=== PATIENT | female | born 1995 | race Caucasian/White ===

== ENCOUNTER → 2019-01-29 | Outpatient (CLI) | payer OTHER ==
[~2019-01-29] MED LIST: ALBU90OI INH; ALBU90OI6 INH; ALBU90OI61 INH; AMOCLA500 PO; ANXIETY MED; Albuterol Sulf8.5 GM INH; BIRTH CONTROL PATCH; BISA5EC PO; BUPR75 PO; Bactrim Ds Tab1 EACH PO; CEFU250 PO; CHOL10002; CIPR500 PO; CITA20 PO; CLIN150 PO; CYCL10 PO; Cipro500 MG PO; Ciprodex Otic7.5 ML RIGHTEAR; Cleocin HCl300 MG PO; DEXGUASY PO; EC-Naprosyn500 MG PO; FLUC150A PO; FLUC200 PO; FLUO10 PO; FLUT.05NI; FLUT44OIA IH; Flonase 0.05% N16 GM; HYDACE5 PO; HYDHCL25 PO; IBUP800 PO; MEDR150I IM; MULVITMIND PO; MULVITMINE PO; Macrobid 100 M100 MG PO; NAPR375 PO; NAPR500 PO; NITR100CA PO; Naprosyn500 MG PO; Norco 10-325 T1 EACH PO; Norco 5-325 Ta1 EACH PO; ONDA4 PO; ORTHO EVRA; OXYACE5T PO; PHENA200 PO; POLY17UD PO; PRODEXEL PO; PROM25 PO; PSYL5.85P PO; Percocet 5-3251 EACH PO; RISP2 PO; RXCYCL10 PO; RXPROM25 PO; RXTRAM50 PO; Roxicodone5 MG PO; SERT25 PO; SULTRIDS PO; Seasonique 0.11 EACH PO; TRAM50 PO; TRIA80TC TOP; Ultram50 MG PO; Vistaril25 MG PO; Zithromax250 MG PO; Zofran Odt4 MG SL; Zofran4 MG PO
== END | disposition home or self-care (01) ==
LOC: LAB 13:26 → LAB SHORT 13:26
DX: Z34.80 Encounter for supervision of other normal pregnancy, unspecified trimester (principal)
CPT/HCPCS: 87081; 87653

== ENCOUNTER 2019-02-19 11:41 | Inpatient (IN) | payer OTHER ==
[~2019-02-19] VITALS: Ht 157.5 cm; Wt 0.3 kg
[2019-02-19] MEDS ORDERED: SERT25 PO (12:08)
[2019-02-19] MEDS ORDERED: PROM25 PO (12:08)
[2019-02-19] MEDS ORDERED: ONDA4ODT MM (12:08)
[2019-02-19 12:09] LABS: BASOPHILS ABSOLUTE AUTO 0.05 K/mm3 (0.00-0.23); BASOPHILS PERCENT AUTO 0 % (0-2); EOSINOPHILS PERCENT AUTO 1 % (0-6); Hematocrit 36.3 % (33.0-51.0); Hemoglobin 11.8 g/dL (11.5-16.0); IMMATURE GRAN ABSOLUTE AUTO 0.19 K/mm3 (0.00-0.10); IMMATURE GRAN PERCENT AUTO 1 % (0-1); LYMPHOCYTES ABSOLUTE AUTO 2.89 K/mm3 (0.84-5.20); LYMPHOCYTES PERCENT AUTO 19 % (21-46); MONOCYTES ABSOLUTE AUTO 0.87 K/mm3 (0.16-1.47); MONOCYTES PERCENT AUTO 6 % (4-13); Mean Corpuscular HGB 29.4 pg (26.0-34.0); Mean Corpuscular HGB Conc 32.5 g/dL (31.5-36.5); Mean Corpuscular Volume 91 fL (80-100); Mean Platelet Volume 11.1 fL (9.1-12.4); NEUTROPHILS ABSOLUTE AUTO 11.21 K/mm3 (1.96-9.15); NEUTROPHILS PERCENT AUTO 73 % (41-73); Platelet Count 306 K/mm3 (150-400); RDW Coefficient Variation 13.1 % (11.7-14.2); RDW Standard Deviation 42.5 fL (35.1-46.3); Red Blood Cell Count 4.01 M/mm3 (3.80-5.20); White Blood Cell Count 15.41 K/mm3 (4.00-11.30)
[2019-02-19] MEDS ORDERED: Norco 5-325 Ta1 EACH PO (12:09)
--- NOTE | 2019-02-20 07:11 | NUR ---
ASSUMED CARE AT 0700, PT HAVING EMESIS. FF, -1, SCANT BLEEDING, PERICARE DONE. FOB HOLDING NB SKIN TO SKIN.
--- NOTE | 2019-02-20 10:27 | NUR ---
PT UP TO SHOWER, LEFT LEG WAS STILL VERY NUMB FOR AWHILE. F/C REMOVED. INSTRUCTED PT TO ATTEMPT TO VOID BY 1330. PT QUINCY AMBULATION WELL. LINEN CHANGED.
--- NOTE | 2019-02-20 10:43 | NUR ---
REPORT TO ROSEANNE SALAZAR. NO ACUTE CHANGES, PT RESTING BACK IN BED.
--- NOTE | 2019-02-20 16:11 | NUR ---
ASSIST BABY SLEEPING. BREASFEEDING ED VERBAL. DISCUSSED AND NEW BEGINNINGS BOOK. DEMONSTRATED HAND EXPRESSION OF BREAST MILK.
[2019-02-21 05:24] LABS: BASOPHILS ABSOLUTE AUTO 0.03 K/mm3 (0.00-0.23); BASOPHILS PERCENT AUTO 0 % (0-2); EOSINOPHILS ABSOLUTE AUTO 0.23 K/mm3 (0.00-0.68); EOSINOPHILS PERCENT AUTO 2 % (0-6); Hematocrit 26.7 % (33.0-51.0); Hemoglobin 8.7 g/dL (11.5-16.0); IMMATURE GRAN ABSOLUTE AUTO 0.13 K/mm3 (0.00-0.10); IMMATURE GRAN PERCENT AUTO 1 % (0-1); LYMPHOCYTES ABSOLUTE AUTO 2.46 K/mm3 (0.84-5.20); LYMPHOCYTES PERCENT AUTO 19 % (21-46); MONOCYTES PERCENT AUTO 8 % (4-13); Mean Corpuscular HGB 29.9 pg (26.0-34.0); Mean Corpuscular HGB Conc 32.6 g/dL (31.5-36.5); Mean Corpuscular Volume 92 fL (80-100); Mean Platelet Volume 10.8 fL (9.1-12.4); NEUTROPHILS ABSOLUTE AUTO 9.17 K/mm3 (1.96-9.15); NEUTROPHILS PERCENT AUTO 70 % (41-73); Platelet Count 236 K/mm3 (150-400); RDW Coefficient Variation 13.1 % (11.7-14.2); Red Blood Cell Count 2.91 M/mm3 (3.80-5.20); White Blood Cell Count 13.02 K/mm3 (4.00-11.30)
[2019-02-21] MEDS ORDERED: IBU800 MG PO (07:45)
[2019-02-21] MEDS ORDERED: IRON150C PO (07:46)
--- NOTE | 2019-02-21 09:13 | NUR ---
PAIN PATIENT FEELING LIKE PAIN IS ON HER RIGHT SIDE OF BACK FROM PUSHING. TYLENOL GIVEN
--- NOTE | 2019-02-21 16:53 | NUR ---
DISCHARGE MOTHER TO BORDER STATUS. VERBALIZES UNDERSTANDING OF DC INSTRUCTIONS AND FOLLOW UP APPOINTMENTS. PP DEPRESSION DISCUSSED AND ANXIETY AND PATIENTS STATES SHE HAS ALL HER MEDICATIONS AT HOME FOR THIS. WILL FOLLOW UP WITH MD IF IT BECOMES UNBEARABLE. VSS. NO COMPLAINTS. LOCHIA SCANT.
== END 2019-02-21 17:00 | disposition home or self-care (01) | DRG 806 ==
LOC: OBS 11:41 → BC 11:41 → OBS 11:53 → BC 11:53 → OBS 12:11 → BC 12:12 → EDSTATUS 12:40 → BC 19:19 → SURS 02-20 07:08 → BC 02-21 17:00
PROVIDERS: ADMIT Obstetrics & Gynecology
PROC: 10E0XZZ Delivery of Products of Conception, External Approach (ICD-10-PCS; principal; 2019-02-19)
PROC: 3E0R3BZ Introduction of Anesthetic Agent into Spinal Canal, Percutaneous Approach (ICD-10-PCS; 2019-02-19)
PROC: 00HU33Z Insertion of Infusion Device into Spinal Canal, Percutaneous Approach (ICD-10-PCS; 2019-02-19)
DX: O99.344 Other mental disorders complicating childbirth (principal); O99.355 Diseases of the nervous system complicating the puerperium; Z37.0 Single live birth; F41.8 Other specified anxiety disorders; Z87.891 Personal history of nicotine dependence; G43.909 Migraine, unspecified, not intractable, without status migrainosus; Z3A.38 38 weeks gestation of pregnancy
CPT/HCPCS: 36415; 51702; 85025; J1885; J2001; J2210; J2405; J2590; J3010; J7120

== ENCOUNTER 2019-04-25 12:29 | Day surgery (SDC) | payer OTHER ==
[~2019-04-25] VITALS: Ht 157.5 cm; Wt 88.5 kg
[~2019-04-25 12:29] MED LIST changes: +BUSP5 PO; +Buspirone HCl10 MG PO; +IBU800 MG PO; +IRON150C PO; +ONDA4ODT MM; +ONDA8 PO; +PROMETH-CODEIN 65 ML PO; +SERT50 PO
--- NOTE | 2019-04-25 13:25 | NUR ---
04/25/19 1325 Leonor Alonzo V PT RESTING IN BED, SIDE RAILS IN PLACE, CALL LIGHT WITHIN REACH, VSS. PT TEACHING COMPLETED. PT DENIES PAIN AND DISCOMFORT AT THIS TIME.
== END 2019-04-25 17:15 | disposition home or self-care (01) ==
LOC: ORSCSDS 12:29
PROVIDERS: Obstetrics & Gynecology
PROC: 0UT64ZZ Resection of Left Fallopian Tube, Percutaneous Endoscopic Approach (ICD-10-PCS; principal; 2019-04-25 14:00)
DX: Z30.2 Encounter for sterilization (principal); Z87.891 Personal history of nicotine dependence; E66.01 Morbid (severe) obesity due to excess calories; Z68.35 Body mass index [BMI] 35.0-35.9, adult; Z79.899 Other long term (current) drug therapy
CPT/HCPCS: 88302; J1100; J1885; J2250; J2405; J2704; J2765; J3010; J7120

== ENCOUNTER 2019-05-29 11:47 | Emergency (ER) | payer OTHER ==
[~2019-05-29] VITALS: Ht 157.5 cm; Wt 86.2 kg
== END 2019-05-29 16:47 | disposition left against medical advice (07) ==
LOC: ER 11:47
DX: Z53.21 Procedure and treatment not carried out due to patient leaving prior to being seen by health care provider (principal)

== ENCOUNTER 2019-11-13 11:16 | Emergency (ER) | payer OTHER ==
[~2019-11-13] VITALS: Ht 157.5 cm; Wt 84.8 kg
[2019-11-13] MEDS ORDERED: IBUP800 PO (11:36)
[2019-11-13 11:48] LABS: BASOPHILS ABSOLUTE AUTO 0.06 K/mm3 (0.00-0.23); BASOPHILS PERCENT AUTO 1 % (0-2); EOSINOPHILS ABSOLUTE AUTO 0.36 K/mm3 (0.00-0.68); EOSINOPHILS PERCENT AUTO 4 % (0-6); Hematocrit 46.5 % (33.0-51.0); Hemoglobin 15.3 g/dL (11.5-16.0); IMMATURE GRAN ABSOLUTE AUTO 0.03 K/mm3 (0.00-0.10); IMMATURE GRAN PERCENT AUTO 0 % (0-1); LYMPHOCYTES ABSOLUTE AUTO 3.11 K/mm3 (0.84-5.20); LYMPHOCYTES PERCENT AUTO 31 % (21-46); MONOCYTES ABSOLUTE AUTO 0.61 K/mm3 (0.16-1.47); MONOCYTES PERCENT AUTO 6 % (4-13); Mean Corpuscular HGB 30.3 pg (26.0-34.0); Mean Corpuscular HGB Conc 32.9 g/dL (31.5-36.5); Mean Corpuscular Volume 92 fL (80-100); Mean Platelet Volume 10.2 fL (9.1-12.4); NEUTROPHILS ABSOLUTE AUTO 5.79 K/mm3 (1.96-9.15); NEUTROPHILS PERCENT AUTO 58 % (41-73); Platelet Count 331 K/mm3 (150-400); RDW Coefficient Variation 12.2 % (11.7-14.2); RDW Standard Deviation 41.2 fL (35.1-46.3); Red Blood Cell Count 5.05 M/mm3 (3.80-5.20); White Blood Cell Count 9.96 K/mm3 (4.00-11.30)
[2019-11-13 12:02] LABS: Alanine Aminotransfer (ALT/SGP 26 U/L (12-78); Albumin, Blood 4.2 g/dL (3.4-5.0); Alk Phos 57 U/L (50-136); Anion Gap 4 mmol/L (6-16); Aspartate Aminotrans (AST/SGOT 16 U/L (12-37); Bilirubin, Total 2.1 mg/dL (0.1-1.0); Blood Urea Nitrogen 8 mg/dL (8-24); Bun/Creatinine Ratio 9.5 (12.0-20.0); CO2, Blood 28 mmol/L (21-32); Calcium, Blood 9.6 mg/dL (8.5-10.1); Chloride, Blood 105 mmol/L (98-108); Creatinine, Blood 0.85 mg/dL (0.40-1.00); Globulin, Blood 4.4 g/dL (2.2-4.0); Glomerular Filtration Rate >60 (60-); Glucose, Blood 92 mg/dL (70-99); Potassium, Blood 3.4 mmol/L (3.5-5.5); Sodium, Blood 137 mmol/L (136-145); Total Protein, Blood 8.6 g/dL (6.4-8.2)
[2019-11-13] MEDS ORDERED: CYCL10 PO (13:32)
== END 2019-11-13 13:54 | disposition home or self-care (01) ==
LOC: ER 11:16
PROVIDERS: Emergency Medicine
DX: R25.2 Cramp and spasm (principal); F32.9 Major depressive disorder, single episode, unspecified; Z87.891 Personal history of nicotine dependence; Z79.899 Other long term (current) drug therapy
CPT/HCPCS: 36415; 80053; 82550; 85025; 96361; 96374; 96375; 99283-25; J1885; J2060; J7120

== ENCOUNTER 2022-06-02 09:39 | Emergency (ER) | payer OTHER ==
[~2022-06-02] VITALS: Ht 157.5 cm; Wt 104.3 kg
[2022-06-02 10:05] LABS: Source, Urine Clean Catch
[2022-06-02 10:19] LABS: Bilirubin, Urine Neg (Neg); Blood, Urine Neg (Neg); Glucose Qualitative, Urine Neg (Neg); Ketones, Urine Neg (Neg); Leukocyte Esterase, Urine Neg (Neg); Nitrite, Urine Neg (Neg); Protein, Urine Neg (Neg); Urobilinogen, Urine NORM (Normal); pH, Urine 6.5 (5.0-8.0)
[2022-06-02 10:34] LABS: Color, Urine Yellow (P-Yellow)
[2022-06-02 10:35] LABS: Appearance, Urine Clear (Clear)
[2022-06-02] MEDS ORDERED: MEDR10 PO (11:49)
== END 2022-06-02 12:00 | disposition home or self-care (01) ==
LOC: ER 09:39
PROVIDERS: Physician Assistant
DX: N93.8 Other specified abnormal uterine and vaginal bleeding (principal); J45.909 Unspecified asthma, uncomplicated; R73.03 Prediabetes; Z88.0 Allergy status to penicillin; Z91.02 Food additives allergy status; Z88.8 Allergy status to other drugs, medicaments and biological substances; Z91.018 Allergy to other foods
CPT/HCPCS: 76830; 76856; 81003; 81025; 99284-25

== ENCOUNTER 2023-08-21 08:17 | Emergency (ER) | payer OTHER ==
[~2023-08-21] VITALS: Ht 157.5 cm; Wt 81.2 kg
[~2023-08-21 08:17] MED LIST changes: +MEDR10 PO
[2023-08-21 09:14] VITALS: BP 147/98
[2023-08-21] MEDS ORDERED: IBU600 M1 PO (10:35)
[2023-08-21] MEDS ORDERED: CYCL10 PO (10:35)
[2023-08-21] MEDS ORDERED: Norco 5-325 Ta1 EACH PO (10:35)
== END 2023-08-21 10:36 | disposition home or self-care (01) ==
LOC: ER 08:17
DX: M54.9 Dorsalgia, unspecified (principal); W17.89XA Other fall from one level to another, initial encounter; J45.909 Unspecified asthma, uncomplicated; Z79.899 Other long term (current) drug therapy; Z88.0 Allergy status to penicillin; Z88.8 Allergy status to other drugs, medicaments and biological substances; Z91.02 Food additives allergy status; Z91.018 Allergy to other foods
CPT/HCPCS: 72070; 99283-25; A9270

== ENCOUNTER → 2023-10-27 | Outpatient (CLI) | payer OTHER ==
[~2023-10-27] MED LIST changes: +IBU600 M1 PO
[2023-10-29 16:19] LABS: APTIMA MEDIA TYPE Urine; C. TRACHOMATIS BY TMA Negative (Negative); N. GONORRHOEAE BY TMA Negative (Negative); SPECIMEN SOURCE Urine; T. VAGINALIS BY TMA Negative (Negative)
== END ==
LOC: LAB SHORT 11:57 → LAB 11:57
PROVIDERS: Student in an Organized Health Care Education/Training Program
DX: R82.90 Unspecified abnormal findings in urine (principal); R82.998 Other abnormal findings in urine
CPT/HCPCS: 87086; 87491; 87591; 87661

== ENCOUNTER 2023-11-22 00:22 | Emergency (ER) | payer OTHER ==
[~2023-11-22] VITALS: Ht 162.6 cm; Wt 81.7 kg
[2023-11-22 01:30] LABS: Source, Urine Clean Catch
[2023-11-22 01:36] LABS: BASOPHILS ABSOLUTE AUTO 0.04 K/mm3 (0.00-0.23); BASOPHILS PERCENT AUTO 1 % (0-2); Bilirubin, Urine Neg (Neg); Blood, Urine Neg (Neg); EOSINOPHILS ABSOLUTE AUTO 0.36 K/mm3 (0.00-0.68); EOSINOPHILS PERCENT AUTO 6 % (0-6); Glucose Qualitative, Urine Neg (Neg); Hematocrit 44.8 % (33.0-51.0); Hemoglobin 15.2 g/dL (11.5-16.0); IMMATURE GRAN ABSOLUTE AUTO 0.02 K/mm3 (0.00-0.10); IMMATURE GRAN PERCENT AUTO 0 % (0-1); Ketones, Urine 3+ (Neg); LYMPHOCYTES ABSOLUTE AUTO 1.77 K/mm3 (0.84-5.20); LYMPHOCYTES PERCENT AUTO 29 % (21-46); Leukocyte Esterase, Urine 1+ (Neg); MONOCYTES ABSOLUTE AUTO 0.41 K/mm3 (0.16-1.47); MONOCYTES PERCENT AUTO 7 % (4-13); Mean Corpuscular HGB Conc 33.9 g/dL (31.5-36.5); Mean Corpuscular Volume 91 fL (80-100); Mean Platelet Volume 10.3 fL (9.1-12.4); NEUTROPHILS ABSOLUTE AUTO 3.48 K/mm3 (1.96-9.15); NEUTROPHILS PERCENT AUTO 57 % (41-73); Nitrite, Urine Neg (Neg); Platelet Count 283 K/mm3 (150-400); Protein, Urine 1+ (Neg); RDW Coefficient Variation 12.1 % (11.7-14.2); RDW Standard Deviation 40.4 fL (35.1-46.3); Urobilinogen, Urine 2+ (Normal); White Blood Cell Count 6.08 K/mm3 (4.00-11.30)
[2023-11-22 01:56] LABS: Albumin, Blood 3.9 g/dL (3.4-5.0); Albumin/Globulin Ratio 0.9 (0.8-1.8); Bilirubin, Total 1.7 mg/dL (0.1-1.0); Bun/Creatinine Ratio 17.5 (12.0-20.0); Calcium, Blood 8.8 mg/dL (8.5-10.1); Creatinine, Blood 0.69 mg/dL (0.40-1.00); Globulin, Blood 4.3 g/dL (2.2-4.0); Potassium, Blood 4.4 mmol/L (3.5-5.5); Total Protein, Blood 8.2 g/dL (6.4-8.2)
[2023-11-22 01:57] LABS: Appearance, Urine Turbid (Clear); Color, Urine Yellow (P-Yellow)
[2023-11-22 01:58] LABS: Bacteria Mod /hpf; Mucus Light (0-Heavy); Red Blood Cells, Urine 0-2 /hpf (0-2)
[2023-11-22 01:59] LABS: Squamous Epithelial Cells Mod /hpf (Few)
[2023-11-22] MEDS ORDERED: CEPH500 PO (03:40)
[2023-11-22 05:50] VITALS: BP 101/63
== END 2023-11-22 05:28 | disposition home or self-care (01) ==
LOC: ER 00:22
PROVIDERS: Emergency Medicine
DX: N39.0 Urinary tract infection, site not specified (principal); E86.0 Dehydration; Z88.0 Allergy status to penicillin; Z88.8 Allergy status to other drugs, medicaments and biological substances; Z91.018 Allergy to other foods; Z79.899 Other long term (current) drug therapy
CPT/HCPCS: 76830; 76856; 80053; 81001; 84703; 85025; 87086; 96365; 96375; 99284-25; J0696; J1885; J7030

== ENCOUNTER 2023-12-21 03:09 | Emergency (ER) | payer OTHER ==
[~2023-12-21] VITALS: Ht 157.5 cm; Wt 82.5 kg
[~2023-12-21 03:09] MED LIST changes: +CEPH500 PO
[2023-12-21 03:28] LABS: BASOPHILS ABSOLUTE AUTO 0.06 K/mm3 (0.00-0.23); BASOPHILS PERCENT AUTO 1 % (0-2); EOSINOPHILS ABSOLUTE AUTO 0.24 K/mm3 (0.00-0.68); EOSINOPHILS PERCENT AUTO 3 % (0-6); Hematocrit 42.7 % (33.0-51.0); Hemoglobin 14.5 g/dL (11.5-16.0); IMMATURE GRAN ABSOLUTE AUTO 0.02 K/mm3 (0.00-0.10); IMMATURE GRAN PERCENT AUTO 0 % (0-1); LYMPHOCYTES ABSOLUTE AUTO 2.71 K/mm3 (0.84-5.20); LYMPHOCYTES PERCENT AUTO 31 % (21-46); MONOCYTES ABSOLUTE AUTO 0.64 K/mm3 (0.16-1.47); MONOCYTES PERCENT AUTO 7 % (4-13); Mean Corpuscular HGB 30.5 pg (26.0-34.0); Mean Corpuscular Volume 90 fL (80-100); Mean Platelet Volume 9.8 fL (9.1-12.4); NEUTROPHILS ABSOLUTE AUTO 4.96 K/mm3 (1.96-9.15); NEUTROPHILS PERCENT AUTO 58 % (41-73); Platelet Count 301 K/mm3 (150-400); RDW Coefficient Variation 11.9 % (11.7-14.2); RDW Standard Deviation 39.5 fL (35.1-46.3); Red Blood Cell Count 4.75 M/mm3 (3.80-5.20); White Blood Cell Count 8.63 K/mm3 (4.00-11.30)
[2023-12-21 03:45] LABS: Albumin, Blood 4.2 g/dL (3.4-5.0); Bilirubin, Total 1.3 mg/dL (0.1-1.0); Bun/Creatinine Ratio 14.4 (12.0-20.0); Calcium, Blood 9.4 mg/dL (8.5-10.1); Creatinine, Blood 0.7 mg/dL (0.40-1.00); Potassium, Blood 3.5 mmol/L (3.5-5.5); Total Protein, Blood 8.2 g/dL (6.4-8.2)
[2023-12-21] MEDS ORDERED: Lidocaine 2% Viscous Soln 15 ML UDC PO ONE (04:05)
[2023-12-21] MEDS ORDERED: Mag Hydrox/AL Hydrox/Simeth 30 ML UDC PO ONE (04:05)
[2023-12-21] MEDS ORDERED: ALMACONE SUSPE355 ML PO (05:36)
[2023-12-21] MEDS ORDERED: OMEP20ER PO (05:36)
[2023-12-21 06:30] VITALS: BP 124/69
== END 2023-12-21 06:34 | disposition home or self-care (01) ==
LOC: ER 03:09
PROVIDERS: Emergency Medicine
DX: R07.9 Chest pain, unspecified (principal); G43.909 Migraine, unspecified, not intractable, without status migrainosus; J45.909 Unspecified asthma, uncomplicated; Z88.0 Allergy status to penicillin; Z88.8 Allergy status to other drugs, medicaments and biological substances
CPT/HCPCS: 71046; 80053; 84484; 85025; 85379; 93005; 93010; 99285-25; A9270

== ENCOUNTER → 2024-05-11 | Outpatient (CLI) | payer OTHER ==
[~2024-05-11] MED LIST changes: +ALMACONE SUSPE355 ML PO; +OMEP20ER PO
== END ==
LOC: LAB 16:00 → LAB SHORT 16:00
DX: R30.0 Dysuria (principal)
CPT/HCPCS: 87086

== ENCOUNTER → 2025-01-29 | Outpatient (CLI) | payer OTHER | END | disposition home or self-care (01) | LOC: LAB 13:51 → LAB SHORT 13:51 | DX: J02.9 Acute pharyngitis, unspecified (principal) | CPT/HCPCS: 87081 ==

== ENCOUNTER 2025-02-28 05:25 | Emergency (ER) | payer OTHER ==
[~2025-02-28] VITALS: Ht 162.6 cm; Wt 83.9 kg
[2025-02-28] MEDS ORDERED: Ondansetron HCl 2 MG / ML 2ML Vial IV ONE (05:55)
[2025-02-28 06:00] LABS: BASOPHILS ABSOLUTE AUTO 0.04 K/mm3 (0.00-0.23); BASOPHILS PERCENT AUTO 0 % (0-2); EOSINOPHILS PERCENT AUTO 1 % (0-6); Hematocrit 41.5 % (33.0-51.0); Hemoglobin 14.3 g/dL (11.5-16.0); IMMATURE GRAN ABSOLUTE AUTO 0.08 K/mm3 (0.00-0.10); IMMATURE GRAN PERCENT AUTO 1 % (0-1); LYMPHOCYTES ABSOLUTE AUTO 1.64 K/mm3 (0.84-5.20); LYMPHOCYTES PERCENT AUTO 11 % (21-46); MONOCYTES PERCENT AUTO 8 % (4-13); Mean Corpuscular HGB 31.2 pg (26.0-34.0); Mean Corpuscular HGB Conc 34.5 g/dL (31.5-36.5); Mean Corpuscular Volume 91 fL (80-100); Mean Platelet Volume 10.1 fL (9.1-12.4); NEUTROPHILS ABSOLUTE AUTO 12.34 K/mm3 (1.96-9.15); NEUTROPHILS PERCENT AUTO 80 % (41-73); Platelet Count 258 K/mm3 (150-400); RDW Coefficient Variation 12.2 % (11.7-14.2); RDW Standard Deviation 40.3 fL (35.1-46.3); Red Blood Cell Count 4.58 M/mm3 (3.80-5.20)
[2025-02-28 06:22] LABS: Albumin, Blood 3.7 g/dL (3.4-5.0); Albumin/Globulin Ratio 0.9 (0.8-1.8); Bilirubin, Total 1.2 mg/dL (0.1-1.0); Bun/Creatinine Ratio 23.9 (12.0-20.0); Calcium, Blood 9.2 mg/dL (8.5-10.1); Creatinine, Blood 0.59 mg/dL (0.40-1.00); Globulin, Blood 4.3 g/dL (2.2-4.0); Potassium, Blood 3.7 mmol/L (3.5-5.5)
[2025-02-28 06:46] LABS: CORONAVIRUS COVID-19 AG Negative (NEGATIVE); INFLUENZA A AG Negative (NEGATIVE); INFLUENZA B AG Negative (NEGATIVE)
[2025-02-28] MEDS ORDERED: DiphenhydrAMINE HCl 50 MG/ML 1ML Vial IV ONE (06:50)
[2025-02-28] MEDS ORDERED: Haloperidol Lactate Inj. 5 MG/ML Injection IV ONE (06:50)
[2025-02-28] MEDS ORDERED: Lactated Ringer's 1,000 ML IV ONE (06:55)
[2025-02-28] MEDS ORDERED: LORazepam 2 MG/ML 1ML Injection ONE (06:58)
[2025-02-28] MEDS ORDERED: Ketorolac Tromethamine 30mg Vial IV ONE (07:00)
[2025-02-28] MEDS ORDERED: NS 1,000 ML IR ONE (07:15)
[2025-02-28] MEDS ORDERED: Clindamycin 600mg in D5W 50 ML IV ONE (07:20)
[2025-02-28] MEDS ORDERED: NS 1,000 ML IV ONE (07:20)
[2025-02-28 07:45] VITALS: BP 134/84
[2025-02-28] MEDS ORDERED: CLIN300 PO (07:48)
== END 2025-02-28 07:51 | disposition home or self-care (01) ==
LOC: ER 05:25
PROVIDERS: Student in an Organized Health Care Education/Training Program
DX: J02.0 Streptococcal pharyngitis (principal); E11.9 Type 2 diabetes mellitus without complications; G43.909 Migraine, unspecified, not intractable, without status migrainosus; J45.909 Unspecified asthma, uncomplicated; Z88.0 Allergy status to penicillin
CPT/HCPCS: 80053; 85025; 87428-QW; 87430; 96374; 96375; 99282-25; J1200; J1630; J1885; J2060; J2405; J7120

== ENCOUNTER 2025-07-16 23:19 | Emergency (ER) | payer OTHER ==
[~2025-07-16] VITALS: Ht 157.5 cm; Wt 85.7 kg
[~2025-07-16 23:19] MED LIST changes: +CLIN300 PO
[2025-07-17 00:56] LABS: BASOPHILS ABSOLUTE AUTO 0.04 K/mm3 (0.00-0.23); BASOPHILS PERCENT AUTO 1 % (0-2); EOSINOPHILS ABSOLUTE AUTO 0.57 K/mm3 (0.00-0.68); EOSINOPHILS PERCENT AUTO 7 % (0-6); Hematocrit 39.3 % (33.0-51.0); Hemoglobin 13.0 g/dL (11.5-16.0); IMMATURE GRAN ABSOLUTE AUTO 0.04 K/mm3 (0.00-0.10); IMMATURE GRAN PERCENT AUTO 1 % (0-1); LYMPHOCYTES ABSOLUTE AUTO 1.69 K/mm3 (0.84-5.20); LYMPHOCYTES PERCENT AUTO 20 % (21-46); MONOCYTES ABSOLUTE AUTO 0.48 K/mm3 (0.16-1.47); MONOCYTES PERCENT AUTO 6 % (4-13); Mean Corpuscular HGB Conc 33.1 g/dL (31.5-36.5); Mean Corpuscular Volume 93 fL (80-100); NEUTROPHILS ABSOLUTE AUTO 5.46 K/mm3 (1.96-9.15); NEUTROPHILS PERCENT AUTO 66 % (41-73); NRBC ABSOLUTE 0.00 K/mm3 (0.00-0.02); NRBC Auto 0.0 /100 WBC (0.0-0.2); Platelet Count 269 K/mm3 (150-400); RDW Coefficient Variation 11.9 % (11.7-14.2); RDW Standard Deviation 40.8 fL (35.1-46.3)
[2025-07-17 04:16] VITALS: BP 131/92
[2025-07-17] MEDS ORDERED: RX Prepack 6 Tabs Oxycodone 5mg UD ONE (04:20)
== END 2025-07-17 04:10 | disposition home or self-care (01) ==
LOC: ER 23:19
PROVIDERS: Student in an Organized Health Care Education/Training Program
DX: K02.9 Dental caries, unspecified (principal); K08.89 Other specified disorders of teeth and supporting structures; J45.909 Unspecified asthma, uncomplicated; Z79.899 Other long term (current) drug therapy; Z88.0 Allergy status to penicillin; Z91.018 Allergy to other foods; Z88.8 Allergy status to other drugs, medicaments and biological substances
CPT/HCPCS: 70487; 85025; 99283-25; A9270; Q9967